=== PATIENT | female | born 1990 | race American Indian/Alaskan Native ===

== ENCOUNTER 2018-05-22 01:19 | Emergency (ER) | payer MEDICAID ==
[2018-05-22 02:19] LABS: Bacteria,Urine 2+ /HPF (Negative); Bilirubin,Urine NEG (Negative); Blood,Urine NEG (Negative); Color,Urine Yellow (Yellow); Mucus,Urine FEW /HPF; Protein,Urine <15 mg/dL mg/dL (Negative); Urobilinogen,Urine < 2.0 mg/dL (<2.0)
--- NOTE | 2018-05-22 03:15 | Ultrasound Report ---
PROCEDURE: US OB >= 14 WEEKS FETUS TECHNIQUE: Transabdominal imaging was obtained of the pelvis with Doppler interrogation of the fetus . HISTORY: fall, back pain COMPARISONS: 02/21/2018 FINDINGS: There is a single viable intrauterine with an estimated sonographic gestational age of 21 w eeks 1 day based on sonographic criteria. The fetus is in cephalic presentation. The amniotic fluid v olume is normal. The placenta is posterior in position and is grade 2. The heart rate is 150 BP M. The cervix is closed measuring 3.4 cm in length. There are no gross anomalies involving the choroid plexus, cisterna magna, cerebellum or latera l ventricles. The stomach, kidneys, bladder, diaphragm, 3 vessel CORD and abdominal cord insertion ap pear normal. The spine is not well seen. The four-chamber. The heart reveals an indeterminate echogen ic focus. The measured indices are within normal in its. The estimated weight is 414 g. IMPRESSION: Single viable IUP, 21 weeks 1 day. heart rate is 150 BPM. Indeterminate echogenic focus in the left ventricle of the heart. A dedicated echocardiogram is recommended for further evaluation. This document is electronically signed by Waldemar Clayton MD., May 22 2018 03:13:37 AM ET
--- NOTE | 2018-05-22 05:00 | Emergency Department Report ---
ED Fall HPI - General Chief Complaint: Back Pain/Injury Stated Complaint: BACK PAIN 19 WEEKS Time Seen by Provider: 05/22/18 03:58 Source: patient Mode of arrival: Ambulatory - History of Present Illness Initial Comments: pt is a a 27 y/o aaf who presents s/p fall versus 3 steps tonight complains of low back pain on numbness no tingling no paralysis no decrease or loss in bowel or bladder function pr is ambulatory to baseline per pateint in ed tonight pain is 5/10 aching soreness there is no vaginal bleeding no abd cramping on no loc no n/v MD Complaint: fall Onset/Timin -: hour(s) Fall From: standing When Fall Occurred: 4-6 hours PEN TESTER Fall Witnessed: yes, by family Place Fall Occurred: home Loss of Consciousness: none Prolonged Down Time?: no Symptoms Prior to Fall: none Location: back Severity: moderate Severity scale (0 -10): 4 Quality: aching Associated Symptoms: denies. denies: headache, neck pain, numbness, weakness, chest paint, shortness of breath, abdominal pain, hematuria, unable to walk, lightheaded, vertigo, confusion - Related Data Previous Rx's Medication Instructions Recorded Last Taken Type HYDROcodone/APAP 5-325 [[place] 1 each PO Q6HR PRN #20 tablet 01/23/16 Unknown Rx 5/325] Acetaminophen [Tylenol Extra 500 mg PO TID #30 tablet 02/21/18 Unknown Rx Strength] Pnv No.95/Ferrous Fum/Folic AC 1 each PO DAILY #40 tablet 02/21/18 Unknown Rx [ Vitamin Tablet] Acetaminophen [Tylenol] 650 mg PO QID PRN #30 capsule 05/22/18 Unknown Rx Menthol/Camphor [[place] 1 applicatio TP QID PRN #1 tube 05/22/18 Unknown Rx Ointment] Allergies Allergy/AdvReac Type Severity Reaction Status Date / Time No Known Allergies Allergy Verified 02/21/18 09:11 ED Review of Systems ROS: Stated complaint: BACK PAIN 19 WEEKS Other details as noted in HPI Constitutional: denies: chills, fever Eyes: denies: eye pain, eye discharge, vision change ENT: denies: ear pain, throat pain, dental pain, hearing loss, congestion Respiratory: denies: cough, shortness of breath, SOB with exertion, SOB at rest, wheezing Cardiovascular: denies: chest pain, palpitations, dyspnea on exertion, orthopnea, edema, syncope, paroxysmal nocturnal dyspnea Endocrine: no symptoms reported Gastrointestinal: denies: abdominal pain, nausea, vomiting, diarrhea, constipation, hematemesis, melena, hematochezia Genitourinary: denies: urgency, dysuria, frequency, hematuria, discharge, abnormal menses, dyspareunia Musculoskeletal: back pain. denies: joint swelling, arthralgia, myalgia Skin: denies: rash Neurological: denies: headache, weakness, numbness, paresthesias, confusion, abnormal gait, vertigo Psychiatric: denies: anxiety, depression Hematological/Lymphatic: denies: easy bleeding, easy bruising ED Past Medical Hx - Past Medical History Previous Medical History?: Yes Hx Sickle Cell Disease: Yes (patient has sickle cell trait) Additional medical history: anemia, ectopic preg - Surgical History Past Surgical History?: Yes Additional Surgical History: ventral herniorrhaphy. removal of right ectopic (fallopian tube not removed) - Social History Smoking Status: Never Smoker Substance Use Type: None - Medications Home Medications: Home Medications Medication Instructions Recorded Confirmed Last Taken Type HYDROcodone/APAP 5-325 [[place] 1 each PO Q6HR PRN #20 tablet 01/23/16 Unknown Rx 5/325] Acetaminophen [Tylenol Extra 500 mg PO TID #30 tablet 02/21/18 Unknown Rx Strength] Pnv No.95/Ferrous Fum/Folic AC 1 each PO DAILY #40 tablet 02/21/18 Unknown Rx [ Vitamin Tablet] Acetaminophen [Tylenol] 650 mg PO QID PRN #30 capsule 05/22/18 Unknown Rx Menthol/Camphor [[place] 1 applicatio TP QID PRN #1 tube 05/22/18 Unknown Rx Ointment] ED Physical Exam - General Limitations: No Limitations General appearance: alert, in no apparent distress - Head Head exam: Present: atraumatic, normocephalic, normal inspection - Expanded Head Exam Expanded Head exam: Absent: laceration, abrasion, contusion, hematoma, racoon eyes, avery's sign, general tenderness, tenderness of temporal artery, CSF rhinorrhea, CSF otorrhea - Eye Eye exam: Present: normal appearance, PERRL, EOMI. Absent: periorbital swelling, periorbital tenderness Pupils: Present: normal accommodation - ENT ENT exam: Present: normal exam, normal orophraynx, mucous membranes moist, TM's normal bilaterally. Absent: normal external ear exam - Neck Neck exam: Present: normal inspection, tenderness, full ROM. Absent: meningismus, lymphadenopathy, thyromegaly - Expanded Neck Exam Expanded Neck exam: Absent: tenderness, midline deformity, anterior neck swelling, thyroid mass, carotid bruit, tracheal deviation - Respiratory Respiratory exam: Present: normal lung sounds bilaterally, decreased breath sounds. Absent: respiratory distress, wheezes, stridor, chest wall tenderness, accessory muscle use, prolonged expiratory - Cardiovascular Cardiovascular Exam: Present: regular rate, normal rhythm, normal heart sounds. Absent: systolic murmur, diastolic murmur, rubs, gallop - GI/Abdominal GI/Abdominal exam: Present: soft, normal bowel sounds. Absent: tenderness, rebound, bruit, pulsatile mass - Rectal Rectal exam: Absent: deferred - External exam: Present: normal external exam - Extremities Exam Extremities exam: Present: normal inspection, full ROM, normal capillary refill. Absent: tenderness, pedal edema, joint swelling, calf tenderness - Back Exam Back exam: Present: normal inspection, full ROM. Absent: tenderness, CVA tenderness (R), CVA tenderness (L), muscle spasm, paraspinal tenderness, vertebr al tenderness, rash noted - Neurological Exam Neurological exam: Present: alert, oriented X3, CN II-XII intact, normal gait, reflexes normal - Psychiatric Psychiatric exam: Present: normal affect, normal mood - Skin Skin exam: Present: warm, dry, intact, normal color. Absent: rash ED Course Vital Signs 05/22/18 01:29 Temperature 98 F Pulse Rate 91 H Respiratory 16 Rate Blood Pressure 118/63 O2 Sat by Pulse 99 Oximetry ED Medical Decision Making - Radiology Data Radiology results: report reviewed, image reviewed Critical Care Time: No Critical care attestation.: If time is entered above; I have spent that time in minutes in the direct care of this critically ill patient, excluding procedure time. ED Disposition Clinical Impression: Fall Qualifiers: Encounter type: initial encounter Qualified Code(s): W19.XXXA - Unspecified fall, initial encounter Low back strain Qualifiers: Encounter type: initial encounter Qualified Code(s): S39.012A - Strain of muscle, fascia and tendon of lower back, initial encounter Qualifiers: Weeks of gestation: 21 weeks Qualified Code(s): Z3A.21 - 21 weeks gestation of Disposition: TO HOME OR SELFCARE Is pt being admited?: No Does the pt Need Aspirin: No Condition: Stable Instructions: Fall Prevention (ED), Low Back Strain (ED), (ED) Prescriptions: Menthol/Camphor [[place] Ointment] 1 applicatio TP QID PRN #1 tube PRN Reason: pain Acetaminophen [Tylenol] 650 mg PO QID PRN #30 capsule PRN Reason: Pain , Severe (7-10) Referrals: ROSSI ZUNIGA MD [Primary Care Provider] - 3-5 Days [facility] [Provider Group] - 3-5 Days Forms: Work/School Release Form(ED) Time of Disposition: 05:54
[2018-05-22 05:38] VITALS: BP 109/70
== END 2018-05-22 05:39 | disposition home or self-care (01) ==
LOC: ED 01:19
DX: O26.892 Other specified pregnancy related conditions, second trimester (principal); S39.012A Strain of muscle, fascia and tendon of lower back, initial encounter; D57.3 Sickle-cell trait; D64.9 Anemia, unspecified; Z3A.21 21 weeks gestation of pregnancy; W19.XXXA Unspecified fall, initial encounter; Y93.89 Activity, other specified; Y92.89 Other specified places as the place of occurrence of the external cause; Y99.8 Other external cause status
CPT/HCPCS: 36415; 76805; 81001; 84702; 99284

== ENCOUNTER 2018-08-01 02:06 | Outpatient (CLI) | payer MEDICAID ==
[2018-08-01] MEDS ORDERED: LACTATED RINGERS 1,000 ML ONE ×2 (03:21→11:02)
--- NOTE | 2018-08-01 04:13 | Ultrasound Report ---
PROCEDURE: US OB LIMITED TECHNIQUE: A limited OB sonogram was obtained for evaluation of the placenta. HISTORY: Bleeding R/O abruption COMPARISONS: 05/22/2018 FINDINGS: The fetus is in cephalic presentation. The heart rate is 151 BPM. The placenta is posterior in position and is grade 2. There is no evidence of abruption. IMPRESSION: Grade 2 posterior placenta. No evidence of abruption or previa. The heart rate is 151 BPM.. This document is electronically signed by Waldemar Clayton MD., Aug 01 2018 04:11:43 AM ET
[2018-08-01 04:21] LABS: Hematocrit 28.4 % (30.3-42.9); Hemoglobin 9.1 gm/dl (10.1-14.3); Mean Corpuscular HGB Conc 32 % (30-34); Platelet Count 341 K/mm3 (140-440); Red Blood Count 4.36 M/mm3 (3.65-5.03); Red Cell Distribution Width 19.4 % (13.2-15.2)
[2018-08-01 04:23] LABS: Mean Corpuscular Volume 65 fl (79-97)
[2018-08-01 04:29] LABS: INR 0.96 (0.87-1.13)
[2018-08-01 04:30] LABS: Partial Thromboplastin Time 26.7 Sec. (24.2-36.6)
[2018-08-01] MEDS ORDERED: LACTATED RINGERS 1,000 ML IV ONE (04:33)
[2018-08-01 04:36] LABS: Amorphous Crystals,Urine 1+; Bacteria,Urine 1+ /HPF (Negative); Bilirubin,Urine NEG (Negative); Blood,Urine MOD (Negative); Color,Urine Yellow (Yellow); Protein,Urine <15 mg/dL mg/dL (Negative); Urobilinogen,Urine < 2.0 mg/dL (<2.0)
[2018-08-01] MEDS ORDERED: BRETHINE ONE ×2 (06:04→10:56)
[2018-08-01] MEDS: BRETHINE SUB-Q SCH ×2 (06:09→10:56)
[2018-08-01] MEDS ORDERED: CELESTONE SOLUSPAN IM SCH (06:15)
[2018-08-01] MEDS ORDERED: ROCEPHIN/NS 1 GM/50 ML 1 GM/50 ML BAG IV SCH (07:40)
[2018-08-01 08:52] VITALS: BP 110/66
== END 2018-08-01 13:51 | disposition home or self-care (01) ==
LOC: TRG 02:06
PROVIDERS: ATTEND Obstetrics & Gynecology
DX: O46.93 Antepartum hemorrhage, unspecified, third trimester (principal); F12.90 Cannabis use, unspecified, uncomplicated; Z3A.29 29 weeks gestation of pregnancy
CPT/HCPCS: 36415; 59025; 76815; 81001; 82731; 85027; 85610; 85730; 96361; 96365; 96366; 96372; J0696; J0702; J3105; J7120; 96360

== ENCOUNTER 2018-09-22 11:11 | Outpatient (CLI) | payer MEDICAID ==
[2018-09-22 11:36] VITALS: BP 112/64
[2018-09-22 11:44] LABS: Bacteria,Urine 1+ /HPF (Negative); Bilirubin,Urine NEG (Negative); Blood,Urine LG (Negative); Color,Urine Yellow (Yellow); Mucus,Urine FEW /HPF; Protein,Urine <15 mg/dL mg/dL (Negative); Urobilinogen,Urine < 2.0 mg/dL (<2.0)
== END 2018-09-22 13:09 | disposition home or self-care (01) ==
LOC: TRG 11:11
PROVIDERS: ATTEND Obstetrics & Gynecology
DX: O47.03 False labor before 37 completed weeks of gestation, third trimester (principal); Z3A.37 37 weeks gestation of pregnancy
CPT/HCPCS: 81001; 87086

== ENCOUNTER 2018-10-04 20:55 | Inpatient (IN) | payer MEDICAID ==
[2018-10-04 22:08] LABS: Hematocrit 29.3 % (30.3-42.9); Hemoglobin 9.3 gm/dl (10.1-14.3); Mean Corpuscular HGB Conc 32 % (30-34); Platelet Count 329 K/mm3 (140-440); Red Cell Distribution Width 18.8 % (13.2-15.2)
[2018-10-04] MEDS ORDERED: BRETHINE IVP PRN (22:11)
[2018-10-04] MEDS ORDERED: MINERAL OIL PO PRN (22:11)
[2018-10-04] MEDS ORDERED: XYLOCAINE 2% INFILTRATI ONE (22:11)
[2018-10-04] MEDS ORDERED: NARCAN 0.4 MG/1 ML IV PRN (22:11)
[2018-10-04] MEDS ORDERED: STADOL IV PRN (22:11)
[2018-10-04] MEDS ORDERED: BRETHINE SUB-Q PRN (22:11)
[2018-10-04 22:23] LABS: Mean Corpuscular Volume 62 fl (79-97)
[2018-10-04] MEDS ORDERED: PITOCin/NS 30 UNIT/500ML 30 UNITS/500 ML BAG IV SCH (23:00)
[2018-10-04] MEDS ORDERED: PITOCin/NS 20 UNIT/1000ML DRIP 20 UNITS/1,000 ML BAG IV SCH (23:00)
[2018-10-05] MEDS: LACTATED RINGERS 1,000 ML IV SCH ×2 (00:06→07:23)
--- NOTE | 2018-10-05 08:12 | History and Physical Report ---
History of Present Illness Date of examination: 10/05/18 Date of admission: 10/04/18 20:55 Chief complaint: Here for induction History of present illness: The patient is a 28 yo at 39.1 wks EGA who presents for IOL for chronic abruption. She reports positive FM, no LOF, and no current vaginal bleeding. She has received care with [facility] since 22 wks EGA. Her has been complicated by chronic abruption, iron deficiency, contractions, Chlamydia treated, SMA carrier, sickle cell trait, and HSV2 with suppression. Past History Past Medical History: no pertinent history Past Surgical History: no surgical history CVOR NURSE History: chlamydia, herpes Family/Genetic History: sickle cell/trait (trait) Social history: no significant social history - Obstetrical History Expected Date of Delivery: 10/11/18 Actual Gestation: 39 Week(s) 1 Day(s) : 6 Para: 2 Hx # Term Pregnancies: 2 Spontaneous Abortions: 3 Number of Living Children: 2 Medications and Allergies Allergies Allergy/AdvReac Type Severity Reaction Status Date / Time No Known Allergies Allergy Verified 02/21/18 09:11 Home Medications Medication Instructions Recorded Confirmed Last Taken Type HYDROcodone/APAP 5-325 [[place] 1 each PO Q6HR PRN #20 tablet 01/23/16 Unknown Rx 5/325] Acetaminophen [Tylenol Extra 500 mg PO TID #30 tablet 02/21/18 Unknown Rx Strength] Pnv No.95/Ferrous Fum/Folic AC 1 each PO DAILY #40 tablet 02/21/18 Unknown Rx [ Vitamin Tablet] Acetaminophen [Tylenol] 650 mg PO QID PRN #30 capsule 05/22/18 Unknown Rx Menthol/Camphor [[place] 1 applicatio TP QID PRN #1 tube 05/22/18 Unknown Rx Ointment] Nitrofurantoin [place]/M-Cryst 100 mg PO Q12HR #14 capsule 09/22/18 Unknown Rx [Macrobid CAP] Active Meds: Active Medications Butorphanol Tartrate (Stadol) 2 mg IV Q2H PRN PRN Reason: Pain , Severe (7-10) Ephedrine Sulfate (Ephedrine Sulfate) 10 mg IV Q2M PRN PRN Reason: Hypotension Fentanyl (Sublimaze) 100 mcg IV Q2H PRN PRN Reason: Labor Pain Oxytocin/Sodium Chloride (Pitocin/Ns 20 Unit/1000ml Drip) 20 units in 1,000 mls @ 125 mls/hr IV DIRECT ISAMAR Oxytocin/Sodium Chloride (Pitocin/Ns 30 Unit/500ml) 30 units in 500 mls @ 1 mls/hr IV TITR ISAMAR; Protocol Last Titration: 10/05/18 07:23 Dose: 4 ml/hr, 4 mls/hr Documented by: Lactated Ringer's (Lactated Ringers) 1,000 mls @ 125 mls/hr IV DIRECT ISAMAR Last Admin: 10/05/18 07:23 Dose: 125 mls/hr Documented by: Mineral Oil (Mineral Oil) 30 ml PO QHS PRN PRN Reason: Constipation Naloxone HCl (Narcan 0.4 Mg/1 Ml) 0.1 mg IV Q2MIN PRN PRN Reason: Res Rate </= 8 or 02 SAT < 92% Ondansetron HCl (Zofran) 4 mg IV Q8H PRN PRN Reason: Nausea And Vomiting Terbutaline Sulfate (Brethine) 0.25 mg SUB-Q ONCE PRN PRN Reason: Hyperstimulation/Hypertonicity Terbutaline Sulfate (Brethine) 0.25 mg IVP ONCE PRN PRN Reason: Hyperstimulation/Hypertonicity Review of Systems All systems: negative - Vital Signs Vital signs: Vital Signs Temp Pulse Resp BP 98.6 F 88 20 118/67 10/04/18 21:40 10/04/18 21:40 10/04/18 21:40 10/04/18 21:40 Temp Pulse Resp BP Pulse Ox 98.6 F 86 20 108/67 100 10/04/18 21:40 10/05/18 08:04 10/04/18 21:40 10/05/18 07:39 10/05/18 08:04 - Physical Exam Cardiovascular: Regular rate, Normal S1, Normal S2, No murmurs Lungs: Positive: Clear to auscultation, Normal air movement Abdomen: Positive: normal appearance (gravid), soft. Negative: distention, tenderness, guarding Genitourinary (Female): Positive: normal external genitalia. Negative: perineal/vulvar lesions Vagina: Positive: normal moisture Uterus: Positive: enlarged (graivd), normal contour Extremities: Positive: normal - Obstetrical FHR: category 1 Uterine Contraction Monitor Mode: External Cervical Dilatation: 4 Cervical Effacement Percentage: 60 station: -2 Uterine Contraction Frequency (min): 2-4 Uterine Contraction Pattern: Regular Results Result Diagrams: 10/04/18 21:40 Abnormal lab results 10/04/18 Range/Units 21:40 WBC 11.2 H (4.5-11.0) K/mm3 Hgb 9.3 L (10.1-14.3) gm/dl Hct 29.3 L (30.3-42.9) % MCV 62 L (79-97) fl MCH 20 L (28-32) pg RDW 18.8 H (13.2-15.2) % All other labs normal. Assessment and Plan A: 28 yo with chronic abruption in early labor AROM with SVE, copious clear fluid, no blood GBS negative HSV2, no current outbreak Anemia Sickle cell trait P: Titrate Pitocin as tolerated Pain medication as requested Anticipate
[2018-10-05] MEDS: SUBLIMAZE IV PRN ×2 (09:53→11:58)
[2018-10-05] MEDS: ZOFRAN IV PRN ×2 (09:54→11:58)
[2018-10-05] MEDS ORDERED: XYLOCAINE 1% 20 mL INFILTRATI ONE (10:58)
[2018-10-05] MEDS ORDERED: XYLOCAINE 2% INFILTRATI ONE (11:28)
--- NOTE | 2018-10-05 11:42 | Procedure Note ---
OB Delivery Note - Delivery Date of Delivery: 10/05/18 Surgeon: EDWIN CARLOS (CN) Estimated blood loss: 200cc - Vaginal Delivery presentation: vertex Delivery position: OA Intrapartum events: extend. bradycardia Delivery induction: oxytocin Delivery augmentation: rupture of membranes Delivery monitor: external FHT, external uterine Route of delivery: Delivery placenta: spontaneous Delivery cord: nuchal cord, 3 umbilical vessels Episiotomy: none Delivery laceration: none Anesthesia: intravenous Delivery comments: Excellent maternal effort resulted in of viable male infant at 1127. Second stage presentation OP, rotated OA upon . Shoulders followed easily after delivery of head. NICU at bedside for recent narcotic administration. Cord clamped and cut 1 minute after delivery, infant to warmer for evaluation. Apgars 8/9. Weight 8lb 2oz. Placenta delivered spontaneously and intact 3 minutes after , no abnormalities noted. Sent to pathology for hx bleeding in . No lacerations noted, EBL 200 mL. - Infant A at 1 minute: 8 at 5 minutes: 9 Gender: Male
[2018-10-05] MEDS ORDERED: TUCKS PAD TP PRN (14:31)
[2018-10-05] MEDS ORDERED: ZOFRAN IV PRN (14:31)
[2018-10-05] MEDS ORDERED: TYLENOL PO PRN (14:31)
[2018-10-05] MEDS ORDERED: SODIUM CHLORIDE FLUSH SYRINGE 10 ML IV SCH (14:31)
[2018-10-05] MEDS ORDERED: MILK OF MAGNESIA PO PRN (14:31)
[2018-10-05] MEDS ORDERED: LANSINOH TP PRN (14:31)
[2018-10-05] MEDS ORDERED: BENADRYL PO PRN (14:31)
[2018-10-05] MEDS ORDERED: PHENERGAN PO PRN (14:31)
[2018-10-05] MEDS ORDERED: PHENERGAN PR PRN (14:31)
[2018-10-05] MEDS ORDERED: DULCOLAX PR PRN (14:31)
[2018-10-05] MEDS ORDERED: CYTOTEC PR PRN (14:31)
[2018-10-05] MEDS: PERCOCET 5/325 PO PRN (15:10)
[2018-10-05] MEDS ORDERED: IBUPROFEN PO SCH (16:00)
[2018-10-06 00:03] LABS: Hematocrit 23.4 % (30.3-42.9); Hemoglobin 7.5 gm/dl (10.1-14.3)
[2018-10-06] MEDS: PERCOCET 5/325 PO PRN (00:17)
[2018-10-06] MEDS: FEOSOL PO SCH ×3 (06:52→21:00)
--- NOTE | 2018-10-06 08:06 | Progress Note ---
Assessment and Plan A: PPD#1 s/p at term, Anemia,Heavy lochia P: Methergine series. Monitor clinically. Anticipate discharge tomorrow. Subjective - Subjective Date of service: 10/06/18 Principal diagnosis: s/p at term Interval history: Pt reports passing a large clot when she got up this morning. Otherwise no complaints. Patient reports: appetite normal, voiding normally, pain well controlled, ambulating normally : doing well Objective - Vital Signs Latest vital signs: Vital Signs Temp Pulse Resp BP Pulse Ox 10/06/18 04:18 98.2 F 91 H 16 120/69 100 10/05/18 23:29 98.2 F 82 16 113/72 100 10/05/18 20:35 98.6 F 95 H 18 120/78 100 10/05/18 16:10 18 10/05/18 15:43 97.6 F 74 18 116/73 99 10/05/18 15:10 20 10/05/18 14:07 98.1 F 93 H 18 112/69 100 10/05/18 13:05 69 100 10/05/18 12:59 78 100 10/05/18 12:55 73 100 10/05/18 12:51 78 120/74 10/05/18 12:50 72 100 10/05/18 12:45 85 100 10/05/18 12:39 74 100 10/05/18 12:35 69 100 10/05/18 12:30 80 100 10/05/18 12:25 64 100 10/05/18 12:20 65 100 10/05/18 12:15 76 100 10/05/18 12:13 75 122/75 10/05/18 12:09 80 100 10/05/18 12:04 80 100 10/05/18 11:59 76 100 10/05/18 11:55 74 115/58 10/05/18 11:54 75 100 10/05/18 11:50 73 108/63 100 10/05/18 11:45 84 112/63 100 10/05/18 11:40 75 115/60 10/05/18 11:39 75 100 10/05/18 11:34 74 100 10/05/18 11:29 83 99 10/05/18 11:24 112 H 100 10/05/18 11:19 94 H 100 10/05/18 11:14 83 100 10/05/18 11:09 82 98 10/05/18 11:04 86 96 10/05/18 11:01 97.8 F 18 10/05/18 10:59 91 H 81 L 10/05/18 10:55 77 L 10/05/18 10:54 75 92 10/05/18 10:49 74 100 10/05/18 10:44 66 100 10/05/18 10:42 79 91 10/05/18 10:39 75 121/80 99 10/05/18 10:34 81 100 10/05/18 10:29 79 100 10/05/18 10:24 66 100 10/05/18 10:19 68 100 10/05/18 10:14 84 100 10/05/18 10:09 72 99 10/05/18 10:04 74 99 10/05/18 09:59 70 100 10/05/18 09:54 80 99 10/05/18 09:49 76 100 10/05/18 09:48 75 114/61 10/05/18 09:44 84 100 10/05/18 09:39 84 100 10/05/18 09:34 81 99 10/05/18 09:29 75 98 10/05/18 09:24 83 99 10/05/18 09:19 81 100 10/05/18 09:14 82 100 10/05/18 09:10 98.2 F 18 10/05/18 09:09 79 100 10/05/18 09:08 72 99/56 10/05/18 09:04 82 100 10/05/18 08:59 79 100 10/05/18 08:54 73 100 10/05/18 08:49 83 100 10/05/18 08:44 68 100 10/05/18 08:39 72 100 10/05/18 08:34 79 100 10/05/18 08:29 75 100 10/05/18 08:24 77 100 10/05/18 08:19 75 100 10/05/18 08:14 73 100 10/05/18 08:09 75 100 Intake and Output 10/05/18 10/06/18 10/06/18 22:59 06:59 14:59 Intake Total 960 840 Balance 960 840 Intake: Oral 240 840 Intake, Free Water 720 Other: Total, Intake Amount 240 840 # Voids Void 2 1 # Bowel Movements 0 - Exam Breasts: Present: deferred Cardiovascular: Present: Regular rate Lungs: Present: Clear to auscultation Abdomen: Present: soft Uterus: Present: fundal height at umbilicus Extremities: Present: normal - Labs Labs: Abnormal lab results 10/05/18 Range/Units 23:26 Hgb 7.5 L (10.1-14.3) gm/dl Hct 23.4 L (30.3-42.9) %
[2018-10-06] MEDS ORDERED: IBUPROFEN PO SCH (08:10)
--- NOTE | 2018-10-06 08:10 | Discharge Summary ---
Providers - Providers Date of Admission: 10/04/18 20:55 Date of discharge: 10/07/18 Attending physician: ANGIE WESTON Primary care physician: ANGIE WESTON Hospitalization Reason for admission: induction of labor Delivery: Procedure details: Please see delivery note. Episiotomy: none Laceration: none Other procedures: none complications: none Discharge diagnosis: IUP at term delivered baby: male Hospital course: Pt was admitted for induction of labor secondary to [facility] recommendation for delivery at 39 weeks her chronic abruption. She underwent a spontaneous vaginal delivery which she tolerated well and the remainder of her course was complicated by uterine atony treated with by mouth Methergine. She met discharge criteria on day #2. She'll follow-up in the office in 4 weeks. Condition at discharge: Stable Disposition: TO HOME OR SELFCARE - Discharge Diagnoses (1) Term of male Status: Acute (2) Anemia Status: Acute Qualifiers: Anemia type: unspecified type Qualified Code(s): D64.9 - Anemia, unspecified Plan - Discharge Medications Prescriptions: Ferrous Sulfate [Ferrous Sulfate 324 MG] 324 mg PO BID #60 tablet. Ibuprofen [Motrin] 600 mg PO Q8H PRN #90 tablet PRN Reason: Pain - Provider Discharge Summary Activity: routine, no sex for 6 weeks, no heavy lifting 4 weeks, no strenuous exercise Diet: routine Instructions: routine Additional instructions: [] Smoking cessation referral if applicable(refer to patient education folder for contact #) [] Refer to [facility] Booklet Call your doctor immediately for: * Fever > 100.5 * Heavy vaginal bleeding ( >1 pad per hour) * Severe persistent headache * Shortness of breath * Reddened, hot, painful area to leg or breast * Drainage or odor from incision. * Keep incision clean and dry at all times and follow doctor's instructions regarding bathing/showering - Follow up plan Follow up: EDWIN CARLOS CNM [Advanced Practice Nurse] - 11/02/18 (Please call to schedule a appt. Please schedule your son's circumcision before he is one month old. )
[2018-10-06] MEDS: PRENATAL VITAMIN PO SCH (09:29)
[2018-10-06] MEDS: COLACE PO SCH ×2 (09:29→21:00)
[2018-10-06] MEDS: METHERGINE PO SCH ×2 (18:31→18:32)
[2018-10-06] MEDS: NORCO 5/325 PO PRN (18:33)
[2018-10-06] MEDS: IBUPROFEN PO SCH (20:49)
[2018-10-07] MEDS: NORCO 5/325 PO PRN ×2 (00:12→10:12)
[2018-10-07] MEDS: IBUPROFEN PO SCH ×2 (05:48→10:10)
[2018-10-07] MEDS ORDERED: BOOSTRIX IM ONE (06:00)
[2018-10-07] MEDS: PRENATAL VITAMIN PO SCH (10:09)
[2018-10-07] MEDS: FEOSOL PO SCH (10:09)
[2018-10-07] MEDS: COLACE PO SCH (10:10)
[2018-10-07 17:23] VITALS: BP 115/77
== END 2018-10-07 17:30 | disposition home or self-care (01) | DRG 774 ==
LOC: LD 20:55 → OB 10-05 14:07
PROVIDERS: ADMIT Obstetrics & Gynecology; ATTEND Obstetrics & Gynecology
PROC: 10E0XZZ Delivery of Products of Conception, External Approach (ICD-10-PCS; principal; 2018-10-05)
PROC: 3E033VJ Introduction of Other Hormone into Peripheral Vein, Percutaneous Approach (ICD-10-PCS; 2018-10-05)
PROC: 3E0234Z Introduction of Serum, Toxoid and Vaccine into Muscle, Percutaneous Approach (ICD-10-PCS; 2018-10-07)
DX: O69.81X0 Labor and delivery complicated by cord around neck, without compression, not applicable or unspecified (principal); O45.8X3 Other premature separation of placenta, third trimester; Z3A.39 39 weeks gestation of pregnancy; Z37.0 Single live birth; O99.02 Anemia complicating childbirth; D57.3 Sickle-cell trait; O76 Abnormality in fetal heart rate and rhythm complicating labor and delivery; O75.89 Other specified complications of labor and delivery; Z23 Encounter for immunization
CPT/HCPCS: 36415; 85014; 85018; 85027; 86592; 86850; 86900; 86901; 88307; 90471; 90715; G0378; J2405; J2590; J3010; J7120

== ENCOUNTER 2019-04-24 18:25 | Emergency (ER) | payer BC, MEDICAID ==
[2019-04-24 19:03] VITALS: BP 126/78
[2019-04-24] MEDS ORDERED: IBUPROFEN 600 MG TAB PO ONE (21:53)
--- NOTE | 2019-04-24 21:54 | Emergency Department Report ---
- General Chief Complaint: Upper Respiratory Infection Stated Complaint: FLU Time Seen by Provider: 04/24/19 21:52 Source: patient Mode of arrival: Ambulatory Limitations: No Limitations - History of Present Illness Initial Comments: 28-year-old -[place] female presents to the emergency room stating that she was treated at urgent care for flu and was told to come back to the ER if she gets worse. Patient states that she has a headache body aches chest tightness. Patient reports was treated with Tamiflu. Onset/Timin -: days(s) Severity scale (0 -10): 8 Quality: aching Consistency: constant Improves With: nothing Worsens With: deep breaths, other (Cough) Associated Symptoms: cough, chest pain (Worse with cough). denies: shortness of breath, abdominal pain - Related Data Home Medications Medication Instructions Recorded Confirmed Last Taken Ferrous Sulfate [Iron 325 MG] 325 mg PO BID 10/06/18 10/06/18 1 Day Ago ~10/05/18 Previous Rx's Medication Instructions Recorded Last Taken Type Pnv No.95/Ferrous Fum/Folic AC 1 each PO DAILY #40 tablet 02/21/18 1 Day Ago Rx [ Vitamin Tablet] ~10/05/18 Ferrous Sulfate [Ferrous Sulfate 324 mg PO BID #60 tablet. 10/05/18 Unknown Rx 324 MG] Ibuprofen [Motrin] 600 mg PO Q8H PRN #90 tablet 10/05/18 Unknown Rx Docusate Sodium [Colace] 100 mg PO BID PRN #60 capsule 10/06/18 Unknown Rx Ferrous Sulfate [Feosol 325 MG tab] 325 mg PO TID #90 tablet 10/06/18 Unknown Rx HYDROcodone/APAP 5-325 [[place] 1 each PO Q6HR PRN #20 tablet 10/06/18 Unknown Rx 5/325] Ibuprofen [Motrin] 800 mg PO Q8HR PRN #30 tablet 10/06/18 Unknown Rx Allergies Allergy/AdvReac Type Severity Reaction Status Date / Time No Known Allergies Allergy Verified 02/21/18 09:11 ED Review of Systems ROS: Stated complaint: FLU Other details as noted in HPI Comment: All other systems reviewed and negative ED Past Medical Hx - Past Medical History Hx Congestive Heart Failure: No Hx Diabetes: No Hx Deep Vein Thrombosis: No Hx Renal Disease: No Hx Sickle Cell Disease: No Hx Seizures: No Hx Asthma: No Hx COPD: No Hx HIV: No Additional medical history: anemia, ectopic preg - Surgical History Additional Surgical History: ventral herniorrhaphy. removal of right ectopic (fallopian tube not removed) - Social History Smoking Status: Never Smoker - Medications Home Medications: Home Medications Medication Instructions Recorded Confirmed Last Taken Type Pnv No.95/Ferrous Fum/Folic AC 1 each PO DAILY #40 tablet 02/21/18 10/06/18 1 Day Ago Rx [ Vitamin Tablet] ~10/05/18 Ferrous Sulfate [Ferrous Sulfate 324 mg PO BID #60 tablet.dr 10/05/18 Unknown Rx 324 MG] Ibuprofen [Motrin] 600 mg PO Q8H PRN #90 tablet 10/05/18 Unknown Rx Docusate Sodium [Colace] 100 mg PO BID PRN #60 capsule 10/06/18 Unknown Rx Ferrous Sulfate [Feosol 325 MG tab] 325 mg PO TID #90 tablet 10/06/18 Unknown Rx Ferrous Sulfate [Iron 325 MG] 325 mg PO BID 10/06/18 10/06/18 1 Day Ago History ~10/05/18 HYDROcodone/APAP 5-325 [[place] 1 each PO Q6HR PRN #20 tablet 10/06/18 Unknown Rx 5/325] Ibuprofen [Motrin] 800 mg PO Q8HR PRN #30 tablet 10/06/18 Unknown Rx ED Physical Exam - General Limitations: No Limitations General appearance: alert, in distress - Head Head exam: Present: atraumatic, normocephalic - Eye Eye exam: Present: normal appearance - ENT ENT exam: Present: mucous membranes moist - Neck Neck exam: Present: normal inspection, full ROM - Respiratory Respiratory exam: Present: normal lung sounds bilaterally. Absent: respiratory distress - Cardiovascular Cardiovascular Exam: Present: regular rate, normal rhythm. Absent: systolic murmur, diastolic murmur, rubs, gallop - GI/Abdominal GI/Abdominal exam: Present: soft, normal bowel sounds - Back Exam Back exam: Present: normal inspection - Neurological Exam Neurological exam: Present: alert, oriented X3, normal gait - Psychiatric Psychiatric exam: Present: normal affect, normal mood - Skin Skin exam: Present: warm, dry, intact, normal color. Absent: rash ED Course Vital Signs 04/24/19 04/24/19 18:58 22:04 Temperature 99.4 F Pulse Rate 86 Respiratory 18 18 Rate Blood Pressure 126/78 O2 Sat by Pulse 99 Oximetry ED Medical Decision Making - Lab Data Result diagrams: 04/24/19 22:19 - Medical Decision Making 28-year-old -[place] female presents to the emergency room stating that she was treated at urgent care for flu and was told to come back to the ER if she gets worse. Patient states that she has a headache body aches chest tightness. Patient reports was treated with Tamiflu. Chest x-ray ordered shows no acute findings Critical care attestation.: If time is entered above; I have spent that time in minutes in the direct care of this critically ill patient, excluding procedure time. ED Disposition Clinical Impression: Viral syndrome Disposition: DC-01 TO HOME OR SELFCARE Is pt being admited?: No Does the pt Need Aspirin: No Condition: Stable Instructions: Viral Syndrome (ED) Additional Instructions: Chest x-ray is negative for any acute findings. Lab work is stable shows no ac [place] infection. Ibuprofen or Tylenol for body aches. Continue with your Tamiflu increase your fluids follow-up with your primary care provider if his symptoms persist or gets worse. Referrals: PRIMARY CARE, [Primary Care Provider] - 3-5 Days Forms: Work/School Release Form(ED)
--- NOTE | 2019-04-24 22:35 | XRay Report ---
CHEST 2 VIEWS INDICATION / CLINICAL INFORMATION: Chest tightness and pain. COMPARISON: None available. FINDINGS: SUPPORT DEVICES: None. HEART / MEDIASTINUM: No significant abnormality. LUNGS / PLEURA: No significant pulmonary or pleural abnormality. .No pneumothorax. ADDITIONAL FINDINGS: No significant additional findings. IMPRESSION: 1. No acute findings. Signer Name: Atif Cast MD Signed: 04/24/2019 10:30 PM Workstation Name: [id number]
[2019-04-24 22:39] LABS: Basophils % (Auto) 0.6 % (0.0-1.8); Eosinophils # (Auto) 0.1 K/mm3 (0.0-0.4); Eosinophils % (Auto) 1.2 % (0.0-4.3); Hemoglobin 14.2 gm/dl (10.1-14.3); Lymphocytes # (Auto) 1.8 K/mm3 (1.2-5.4); Mean Corpuscular HGB Conc 33 % (30-34); Mean Corpuscular Volume 72 fl (79-97); Monocytes # (Auto) 0.8 K/mm3 (0.0-0.8); Monocytes % (Auto) 15.9 % (0.0-7.3); Platelet Count 252 K/mm3 (140-440); Red Blood Count 5.99 M/mm3 (3.65-5.03)
[2019-04-24 22:56] LABS: BUN/Creatinine Ratio 8; Blood Urea Nitrogen 5 mg/dL (7-17); Calcium 9.6 mg/dL (8.4-10.2); Hemolysis Index 0; Red Cell Distribution Width 21.3 % (13.2-15.2)
[2019-04-24] MEDS ORDERED: HYDROcodone/ACETAMINOPHEN 10-325MG TAB ONE (23:26)
[2019-04-24] MEDS ORDERED: HYDROcodone/ACETAMINOPHEN 5-325 MG TAB PO ONE (23:47)
== END 2019-04-24 23:40 | disposition home or self-care (01) ==
LOC: ED 18:25
DX: B34.9 Viral infection, unspecified (principal); D64.9 Anemia, unspecified; Z79.899 Other long term (current) drug therapy; Z98.890 Other specified postprocedural states
CPT/HCPCS: 36415; 71046; 80048; 85025

== ENCOUNTER 2019-05-17 00:30 | Emergency (ER) | payer BC ==
[2019-05-17 01:42] VITALS: BP 123/78
[2019-05-17] MEDS ORDERED: predniSONE 50 MG TAB PO STA (02:22)
--- NOTE | 2019-05-17 03:06 | XRay Report ---
CHEST 2 VIEWS INDICATION / CLINICAL INFORMATION: cough and sob. COMPARISON: 04/24/2019 FINDINGS: SUPPORT DEVICES: None. HEART / MEDIASTINUM: No significant abnormality. LUNGS / PLEURA: Mild peribronchial cuffing, which is chronic, and usually indicative of reactive airw ays disease. No evidence of pneumonia or pleural effusion. No pneumothorax. ADDITIONAL FINDINGS: No significant additional findings. IMPRESSION: 1. Chronic peribronchial cuffing. No acute pulmonary or pleural disease. No interval change from prio r exam. Signer Name: Jaymie Natarajna MD Signed: 05/17/2019 3:01 AM Workstation Name: [id number]
--- NOTE | 2019-05-17 04:02 | Emergency Department Report ---
ED General Adult HPI - General Chief complaint: Dyspnea/Respdistress Stated complaint: CHEST PAIN/SOB/VOMITING Time Seen by Provider: 05/17/19 02:22 Source: patient Mode of arrival: Ambulatory Limitations: No Limitations - History of Present Illness Initial comments: 28-year-old -[place] female presents emergency department complaining of a 1 week history of cough congestion coryza with few episodes of vomiting which is been waxing and waning since the onset. She reports no hemoptysis, hematemesis no hematochezia. No abdominal pain no nausea no chest pain or palpitations Radiation: non-radiation Consistency: constant Associated Symptoms: cough. denies: confusion, chest pain, loss of appetite, malaise, nausea/vomiting, rash, weakness - Related Data Home Medications Medication Instructions Recorded Confirmed Last Taken Ferrous Sulfate [Iron 325 MG] 325 mg PO BID 10/06/18 10/06/18 1 Day Ago ~10/05/18 Previous Rx's Medication Instructions Recorded Last Taken Type Pnv No.95/Ferrous Fum/Folic AC 1 each PO DAILY #40 tablet 02/21/18 1 Day Ago Rx [ Vitamin Tablet] ~10/05/18 Ferrous Sulfate [Ferrous Sulfate 324 mg PO BID #60 tablet.dr 10/05/18 Unknown Rx 324 MG] Ibuprofen [Motrin] 600 mg PO Q8H PRN #90 tablet 10/05/18 Unknown Rx Docusate Sodium [Colace] 100 mg PO BID PRN #60 capsule 10/06/18 Unknown Rx Ferrous Sulfate [Feosol 325 MG tab] 325 mg PO TID #90 tablet 10/06/18 Unknown Rx HYDROcodone/APAP 5-325 [[place] 1 each PO Q6HR PRN #20 tablet 10/06/18 Unknown Rx 5/325] Ibuprofen [Motrin] 800 mg PO Q8HR PRN #30 tablet 10/06/18 Unknown Rx Albuterol INH(or & Nicu Only) 2 puff IH QID PRN #1 inhalation 05/17/19 Unknown Rx [ProAir HFA Inhaler] guaiFENesin/CODEINE [Robitussin AC] 5 ml PO Q6H PRN #120 ml 05/17/19 Unknown Rx predniSONE [Deltasone] 50 mg PO QDAY #5 tab 05/17/19 Unknown Rx Allergies Allergy/AdvReac Type Severity Reaction Status Date / Time No Known Allergies Allergy Verified 02/21/18 09:11 ED Review of Systems ROS: Stated complaint: CHEST PAIN/SOB/VOMITING Other details as noted in HPI Comment: All other systems reviewed and negative ED Past Medical Hx - Past Medical History Hx Congestive Heart Failure: No Hx Diabetes: No Hx Deep Vein Thrombosis: No Hx Renal Disease: No Hx Sickle Cell Disease: No Hx Seizures: No Hx Asthma: No Hx COPD: No Hx HIV: No Additional medical history: anemia, ectopic preg - Surgical History Additional Surgical History: ventral herniorrhaphy. removal of right ectopic (fallopian tube not removed) - Social History Smoking Status: Never Smoker Substance Use Type: None - Medications Home Medications: Home Medications Medication Instructions Recorded Confirmed Last Taken Type Pnv No.95/Ferrous Fum/Folic AC 1 each PO DAILY #40 tablet 02/21/18 10/06/18 1 Day Ago Rx [ Vitamin Tablet] ~10/05/18 Ferrous Sulfate [Ferrous Sulfate 324 mg PO BID #60 tablet.dr 10/05/18 Unknown Rx 324 MG] Ibuprofen [Motrin] 600 mg PO Q8H PRN #90 tablet 10/05/18 Unknown Rx Docusate Sodium [Colace] 100 mg PO BID PRN #60 capsule 10/06/18 Unknown Rx Ferrous Sulfate [Feosol 325 MG tab] 325 mg PO TID #90 tablet 10/06/18 Unknown Rx Ferrous Sulfate [Iron 325 MG] 325 mg PO BID 10/06/18 10/06/18 1 Day Ago History ~10/05/18 HYDROcodone/APAP 5-325 [[place] 1 each PO Q6HR PRN #20 tablet 10/06/18 Unknown Rx 5/325] Ibuprofen [Motrin] 800 mg PO Q8HR PRN #30 tablet 10/06/18 Unknown Rx Albuterol INH(or & Nicu Only) 2 puff IH QID PRN #1 inhalation 05/17/19 Unknown Rx [ProAir HFA Inhaler] guaiFENesin/CODEINE [Robitussin AC] 5 ml PO Q6H PRN #120 ml 05/17/19 Unknown Rx predniSONE [Deltasone] 50 mg PO QDAY #5 tab 05/17/19 Unknown Rx ED Physical Exam - General Limitations: No Limitations General appearance: alert, in no apparent distress - Head Head exam: Present: atraumatic, normocephalic - Eye Eye exam: Present: normal appearance - ENT ENT exam: Present: mucous membranes moist - Neck Neck exam: Present: normal inspection, full ROM - Respiratory Respiratory exam: Present: normal lung sounds bilaterally, rhonchi. Absent: respiratory distress, chest wall tenderness, accessory muscle use - Cardiovascular Cardiovascular Exam: Present: regular rate, normal rhythm. Absent: systolic murmur, diastolic murmur, rubs, gallop - GI/Abdominal GI/Abdominal exam: Present: soft, normal bowel sounds - Extremities Exam Extremities exam: Present: normal inspection - Back Exam Back exam: Present: normal inspection - Neurological Exam Neurological exam: Present: alert, oriented X3 - Psychiatric Psychiatric exam: Present: normal affect, normal mood - Skin Skin exam: Present: warm, dry, intact, normal color. Absent: rash ED Course Vital Signs 05/17/19 00:50 Temperature 98.6 F Pulse Rate 70 Respiratory 14 Rate Blood Pressure 123/78 O2 Sat by Pulse 100 Oximetry ED Medical Decision Making - Radiology Data Radiology results: report reviewed Chronic cuffing noted no acute process - Medical Decision Making This patient presents with acute cough, most consistent with URI, bronchitis, asthma, pneumonia. Presentation not consistent with acute bacterial pneumonia, influenza, asthma, transient airway hyperresponsiveness. Presentation not consistent with chronic causes of cough (including GERD, asthma, postnasal discharge, medication side effect, CHF, lung cancer or mass). Plan: CXR no acute process on chest x-ray and only chronic bronchial cuffing, supportive care, reassess Critical care attestation.: If time is entered above; I have spent that time in minutes in the direct care of this critically ill patient, excluding procedure time. ED Disposition Clinical Impression: Bronchitis Disposition: DC-01 TO HOME OR SELFCARE Is pt being admited?: No Does the pt Need Aspirin: No Condition: Stable Instructions: Chronic Bronchitis (ED) Prescriptions: predniSONE [Deltasone] 50 mg PO QDAY #5 tab Albuterol INH(or & Nicu Only) [ProAir HFA Inhaler] 2 puff IH QID PRN #1 inhalation PRN Reason: Shortness Of Breath guaiFENesin/CODEINE [Robitussin AC] 5 ml PO Q6H PRN #120 ml PRN Reason: Cough Referrals: PRIMARY CARE,MD [Primary Care Provider] - 3-5 Days
== END 2019-05-17 04:20 | disposition home or self-care (01) ==
LOC: ED 00:30
DX: J40 Bronchitis, not specified as acute or chronic (principal); Z98.890 Other specified postprocedural states; Z79.1 Long term (current) use of non-steroidal anti-inflammatories (NSAID); Z79.899 Other long term (current) drug therapy
CPT/HCPCS: 71046; 93005; 93010; 99283; J7512

== ENCOUNTER 2021-06-09 14:13 | Outpatient (CLI) | payer OTHER ==
--- NOTE | 2021-06-09 16:58 | Ultrasound Report ---
US transvaginal, US pelvic complete INDICATION / CLINICAL INFORMATION: Dysfunctional uterine bleeding. TECHNIQUE: Transabdominal and Transvaginal. Duplex Color Doppler used: Yes. COMPARISON: None available FINDINGS: UTERUS: Uterus measures 8.2 x 5.3 x 6.8 cm. There is diffuse prominence of the myometrium with "Venet bhavik blind" pattern of acoustic shadowing, suspect adenomyosis. No focal myometrial mass. Endometrial stripe is normal for age, measuring 7 mm. RIGHT ADNEXA: Small ovarian follicles. No significant ovarian cyst or mass. Normal color Doppler bloo d flow. LEFT ADNEXA: No significant ovarian cyst or mass. Normal color Doppler blood flow. URINARY BLADDER: No significant abnormality. FREE FLUID: None. ADDITIONAL FINDINGS: None. IMPRESSION: Findings suspicious for diffuse uterine adenomyosis. Signer Name: Wilder Clark MD Signed: 06/09/2021 4:54 PM Workstation Name: [id number]
== END 2021-06-09 14:14 | disposition home or self-care (01) ==
LOC: US 14:13
PROVIDERS: ATTEND Family Medicine
DX: N92.0 Excessive and frequent menstruation with regular cycle (principal); D64.9 Anemia, unspecified
CPT/HCPCS: 76830; 76856